=== PATIENT | female | born 1940 | race African-American/Black ===

== ENCOUNTER 2017-01-31 09:51 | Inpatient (IN) ==
[2017-01-31] MEDS ORDERED: PANTOPRAZOLE 40 MG TABLET PO STA (11:25)
[2017-01-31] MEDS ORDERED: METOCLOPRAMIDE 10 MG/2 ML VIAL IV STA (11:25)
[2017-01-31] MEDS ORDERED: ONDANSETRON 4 MG/2 ML VIAL IV STA (11:25)
[2017-01-31] MEDS ORDERED: SODIUM CHLORIDE 0.9% 500 ML IV STA (11:28)
--- NOTE | 2017-01-31 11:31 | Emergency Department Note ---
Arrival - Arrival Chief Complaint: GI Bleed/Rectal Stated Complaint: rectal bleed ED Nursing Triage Note: Pt c/o bright red blood clots in her stool since Tuesday with weakness. Denies abd pain Mode of Arrival: Ambulatory Limitations: No Limitations Source: Patient Time Seen by Provider: 01/31/17 11:25 - History of Present Illness HPI Narrative: This 76-year-old black female presents with a history of onset of black tarry bowel movements 3 days ago with a daily repetition of loose tarry bowel movement since. She has a history of bleeding diverticula and has 3 times in the past had problems with hemorrhage. She denies any pain with this nausea, vomiting, or bright red blood per rectum. At no time did she have any complaints of chest pain or shortness of breath. Her primary complaint is weakness and at times dizziness. She currently at rest in bed is medically stable. Onset (ago): day(s) (This patient presents with 3 days of symptoms) Allergies/Adverse Reactions: Allergies Allergy/AdvReac Type Severity Reaction Status Date / Time No Known Allergies Allergy Unverified 08/12/15 12:20 Home Medications: Home Medications Medication Instructions Recorded Confirmed Type Metoprolol Succinate Xl [Toprol Xl] 25 mg PO DAILY 08/12/15 01/31/17 History Pantoprazole Tab [Protonix Tab] 40 mg PO DAILY 08/12/15 01/31/17 History hydroCHLOROthiazide 25 mg PO DAILY 08/12/15 01/31/17 History [Hydrochlorothiazide] Review of System - Review of System 12 point system: reviewed and no additional remarkable complaints except as stated - Review of System Constitutional: Present: as per HPI Respiratory: Present: as per HPI Cardiovascular: Present: as per HPI Gastrointestinal: Present: as per HPI Medical,Surgical,& Family Hx - Medical History Cardio: History of: Hypertension Gastrointestinal: History of: GERD, GI Problems (STOMACH ULCER) - Surgical History Reproductive Surgeries: Surgical HX of;: Hysterectomy - Family History Family History: Reports;: Family Heart Disease - Social History Smoking Status: Never smoker Exam Physical Examination: GENERAL: Well developed, well nourished elderly black female in no acute distress. HEENT: Normocephalic. No trauma. Moist mucous membranes. EOMI. PERRLA. ENT NML NECK: Supple. No adenopathy. CARDIAC: Regular. No murmurs. Heart rate 75 CHEST: Clear to auscultation. No respiratory distress. O2 sat 99% ABDOMEN: Soft. Nontender. Hyperactive bowel sounds.: Very heme positive stool EXTREMITIES: No trauma. Normal ROM. No pedal edema. SKIN: No diaphoresis. No rash. NEURO: Alert. Neuro intact no focal deficits. Vital Signs: Vital Signs Temperature 99.5 F 01/31/17 11:13 Pulse Rate 79 01/31/17 12:30 Respiratory Rate 19 01/31/17 12:30 Blood Pressure 124/100 01/31/17 12:30 O2 Sat by Pulse Oximetry 100 01/31/17 12:30 Course - Reevaluation(s) Reevaluation #1: Discussed with patient the need for hospitalization for evaluation of her bleed - Consultations Consultation #1: Discussed with hospitalist service who will admit for further evaluation treat Results - Labs CBC & BMP: 01/31/17 11:37 01/31/17 11:37 Labs: I reviewed the lab and noted the low hematocrit and potassium. - Impressions EKG: Sinus rhythm at 55 with normal ND interval and QRS duration. Evidence for LVH. Nonspecific ST changes but no acute injury pattern noted. - Diagnostic Findings Procedure: Chest x-ray: image reviewed by me, report reviewed by me (Chronic changes but no acute pathology there has been development of pulmonary nodules on interval comparison however.) Disposition Clinical Impression: Diverticular bleed, Pulmonary nodules Case discussed with: patient Disposition: Still a Patient Condition: Guarded Time of Disposition: 13:31
[2017-01-31 11:54] LABS: Basophils % 0.1 % (0.0-0.8); Eosinophils % 0.1 % (0.00-10.9); Hematocrit 25.1 VOL% (35.7-47.0); Hemoglobin 7.9 GM/DL (12.0-16.0); Immature Granulocytes % 0.4 %; Immature Granulocytes Absolute 0.03 #; Lymphocytes # 1.7 10*3/uL (1.4-4.0); Lymphocytes % 21.8 % (21.3-54.2); Mean Corpuscular HGB Conc 31.5 GM/DL (32-36); Mean Corpuscular Hemoglobin 26 PG (27-34); Mean Corpuscular Volume 82.3 FL (87-102); Mean Platelet Volume 9.9 FL (9.6-12.0); Monocytes # 0.7 10*3/uL (0.11-0.8); Monocytes % 8.6 % (1.7-12.7); Neutrophils # 5.3 10*3/uL (1.4-7.4); Platelet Count 185 T/CUMM (130-400); Red Blood Count 3.05 MC/CUMM (3.8-5.5); Red Cell Distribution Width 15.7 % (9.3-17.3); White Blood Count 7.7 T/CUMM (4-12)
--- NOTE | 2017-01-31 11:54 | EKG Report ---
Stationary ECG Study [facility] ER Test Date: 01/31/2017 11:55:02 AM Pat Name: CHEL WEINBERG Department: Room: Gender: F Publishing Manager: : 1940 Requested by: Joseph Stallings Order Number: [id number] Tanner MD: SADIE LOWE Intervals Supply Rate: 55 P: 62 AK: 166 QRS: 1 QRSD: 90 T: -7 QT: 462 QTc: 451 Interpretive Statements SINUS RHYTHM VOLTAGE CRITERIA FOR LVH Electronically Signed On 01-31-17 13:59:05 CDT by SADIE LOWE [email or web address]
[2017-01-31] MEDS ORDERED: METOCLOPRAMIDE 10 MG/2 ML VIAL ONE (11:55)
[2017-01-31] MEDS ORDERED: PANTOPRAZOLE 40 MG TABLET PO ONE (11:55)
[2017-01-31] MEDS ORDERED: ONDANSETRON 4 MG/2 ML VIAL ONE (11:55)
--- NOTE | 2017-01-31 11:57 | XRay Report ---
Portable chest. Indication: Shortness of breath. Comparison: August 02, 2015. The heart is normal in size. There is calcific plaque present within the aortic knob. The pulmonary vasculature is normal. The lung ledezma are free of infiltrate. No pneumothorax. No pleural effusion. 8 mm nodular density projects over the left lung base. This is not seen on the previous exam. Degenerative changes of the spinal column and shoulders. Indication: Small nodule in the left lung base, not seen on previous studies. CT the chest is recommended for further evaluation. PROCEDURE INTERPRETED AT [facility] DEPARTMENT OF RADIOLOGY Final Report Signed by: Dr. Arabella Hair
[2017-01-31 12:25] LABS: Alanine Aminotransferase 19 U/L (13-56); Albumin 3.5 G/DL (3.4-5.0); Alkaline Phosphatase 104 U/L (45-117); Aspartate Amino Transferase 16 U/L (0-37); Blood Urea Nitrogen 19 MG/DL (7-18); Calcium 9.8 MG/DL (8.5-10.1); Glucose 107 MG/DL (74-106); Osmolality,Calculated 276.7 MOS/KG (273-304); Potassium 3.3 MMOL/L (3.5-5.1); Sodium 138 MMOL/L (136-145); Total Protein 6.6 G/DL (6.4-8.3); Troponin I Only 0.019 NG/ML (0.00-0.045)
[2017-01-31 12:36] LABS: PT Patient Result 11.4 SECS; Partial Thromboplastin Time 25.4 SECS (0-40)
[2017-01-31] MEDS ORDERED: POTASSIUM BICARB EFFERVESCENT 25 MEQ TABLET PO ONE ×2 (13:09→13:58)
[2017-01-31] MEDS ORDERED: PANTOPRAZOLE INJ 200 MG in SODIUM CHLORIDE 0.9% 250 ML IV SCH (14:00)
[2017-01-31] MEDS ORDERED: SODIUM CHLORIDE 0.9% 250 ML IV PRN (14:11)
--- NOTE | 2017-01-31 14:15 | Hospitalist History & Physical ---
Assessment and Plan (1) Essential (primary) hypertension Status: Acute Assessment and plan: Patient was mildly hypertensive at the time of ED presentation with blood pressure noted at 124/100. We will resume home medications as previously ordered we will monitor blood pressure throughout the clinical encounter. Current Visit: No (2) GI bleed Status: Acute Current Visit: No (3) Diverticular hemorrhage Status: Resolved Assessment and plan: The patient reports multiple episodes of diverticular hemorrhage in the past. We will gently rehydrate, type and screen, transfuse blood products, start PPIs , DVT prophylaxis, and keep n.p.o. Gastroenterology has been consulted to evaluate and assist during the clinical encounter. Current Visit: No (4) Hypokalemia Status: Acute Assessment and plan: Potassium noted at 3.3 at the time of admission. We will start potassium replacement protocol and recheck potassium in a.m. Current Visit: Yes History of Present Illness Chief complaint: Bloody stools and weakness History of present illness: This is a very pleasant 76-year-old female that presented to the ED at [facility] this afternoon for the evaluation of bloody stools and weakness. The patient has a medical history significant for: hypertension and GERD. Patient has a surgical history significant for hysterectomy. Patient reports the onset of stools 3 days prior to presentation. She describes the stool as "loose and tarry". The patient reports that she has had a remote history of diverticular bleeding which presented similar to the above complaint. Pertinent positives include: Bloody stools and weakness; pertinent negatives include: Nausea, vomiting, abdominal pain, diaphoresis, fever, chest pain, shortness of breath, and syncope. After multiple episodes of bloody stool this morning, the patient decided to present to the ED for further evaluation. The patient was assessed at the time of ED presentation. The patient was noted to be febrile with a temperature of 99.5 and hypotensive with a blood pressure of 124/100. Labs were obtained; complete blood count reported white blood cell count at 7.7, hemoglobin 7.9, hematocrit 25.1, and platelet count 185. Coagulation panel reported INR 1.0, PT 11.4, PTT 25.4. Complete metabolic profile reported sodium 138, potassium 3.3, chloride 102, BUN 19, creatinine 1.30, and glucose 107. Cardiac enzymes reported troponin at 0.019. Chest x- ray reported small nodular in the left lung base which was not seen on previous studies. After brief discussion with both Dr. Saxena and Dr. Jaramillo, the patient will be admitted to the hospitalist services for continuation of care. We will consult gastroenterology to evaluate and assist in the management of the patient during the clinical encounter. Home medications have been reviewed and reconciled. CODE STATUS has been discussed; the patient is a FULL CODE. Home Medications Medication Instructions Recorded Confirmed Type Metoprolol Succinate Xl [Toprol Xl] 25 mg PO DAILY 08/12/15 01/31/17 History Pantoprazole Tab [Protonix Tab] 40 mg PO DAILY 08/12/15 01/31/17 History hydroCHLOROthiazide 25 mg PO DAILY 08/12/15 01/31/17 History [Hydrochlorothiazide] Allergies Allergy/AdvReac Type Severity Reaction Status Date / Time No Known Allergies Allergy Unverified 08/12/15 12:20 Medical,Surgical,& Family Hx - Medical History Cardio: History of: Hypertension Gastrointestinal: History of: GERD, GI Problems (STOMACH ULCER) - Surgical History Reproductive Surgeries: Surgical HX of;: Hysterectomy - Family History Family History: Reports;: Family Heart Disease - Social History Smoking Status: Never smoker 12 point system: reviewed and no additional remarkable complaints except as stated Exam - Constitutional Vitals: Period Temp Pulse Resp BP Sys/Mukherjee Pulse Ox Last 24 Hr 98.2 F-99.5 F 58-79 15-19 80-133/50-100 98-100 General appearance: normal weight, no acute distress - Head Head exam: Present: normal inspection, normocephalic, atraumatic - Eye Eye exam: Present: EOMI. Absent: conjunctival injection Pupils: Present: KIANA, normal accommodation - ENT ENT exam: Present: normal exam, normal external ear exam, normal oropharynx - Neck Neck exam: Present: normal inspection. Absent: lymphadenopathy, meningismus, thyromegaly - Respiratory Respiratory exam: Present: clear to auscultation bilaterally. Absent: rales, rhonchi, stridor, wheezes - Cardiovascular Cardiovascular exam: Present: regular rate and rhythm. Absent: carotid bruit, diastolic murmur, gallop, JVD, rubs, systolic murmur - GI/Abdominal GI/Abdominal exam: Present: normal bowel sounds, soft. Absent: distended, guarding, tenderness - Extremities Exam Extremities exam: Present: normal inspection, normal capillary refill, full ROM , edema - Back Exam Back exam: Present: normal inspection - Neurological Exam Neurological exam: Present: alert, oriented X3, CN II-XII intact - Psychiatric Psychiatric exam: Present: normal affect, normal mood - Skin Skin exam: Present: normal color, warm, dry Results - Labs CBC & BMP: 01/31/17 11:37 01/31/17 11:37 Lab Results: I have reviewed the past 24 hour labs
--- NOTE | 2017-01-31 14:55 | Gastrointestinal Consult Note ---
Assessment and Plan (1) GI bleed Status: Acute Assessment and plan: 01/31-3 day history of bright red rectal bleeding with clots mixed with stool without associated symptoms. No abdominal pain. Prior history of diverticular bleeding in the past. Hemoglobin down to 7.9 and to be transfused today. Last C scope in 2010 with findings of pandiverticulosis. Continue to monitor serial H&H every 8 hours and transfuse as needed. Clear liquid diet. Plan an addendum to follow Dr. Branch. Current Visit: No History of Present Illness Chief complaint: GI bleed History of present illness: Ms. Corona is a 76 year old female who was admitted to the hospital with onset of bright red rectal bleeding. Patient is a fairly good historian however sign and spouse are at bedside. Patient states that she was doing well until Tuesday when she had a sudden onset of bright red rectal bleeding. She states that the bleeding concern her and she went to see Dr. Rodriguez at that time and was given antibiotics to treat for possible diverticulitis. She was also told at that time the rectal bleeding was possibly related to her hemorrhoids. She states that the bleeding continued over the weekend with a couple of bowel movements daily mixed with bright red blood and dark clots without abdominal pain other than the urge to defecate. She states that on yesterday she began to be increasingly weak and decided to come to the emergency room today for further evaluation due to this. Patient has a prior history of diverticular bleeding in the past. She states that this feels very similar to the past experience that she has had. She has had some weight loss over the last year at 25 pounds which was verified from her last inpatient stay in July 2015. 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 She does report a loss of appetite over the last year or 2. Her last inpatient stay was in July 2015 for rectal bleeding. Last known colonoscopy was in 2010 with findings of pandiverticulosis coli and small internal hemorrhoids. On admission patient was found to have a hemoglobin of 7.9. She is to be transfused 2 units of packed red blood cells today. Home Medications Medication Instructions Recorded Confirmed Type Metoprolol Succinate Xl [Toprol Xl] 25 mg PO DAILY 08/12/15 01/31/17 History Pantoprazole Tab [Protonix Tab] 40 mg PO DAILY 08/12/15 01/31/17 History hydroCHLOROthiazide 25 mg PO DAILY 08/12/15 01/31/17 History [Hydrochlorothiazide] Allergies Allergy/AdvReac Type Severity Reaction Status Date / Time No Known Allergies Allergy Unverified 08/12/15 12:20 Medical,Surgical,& Family Hx - Medical History Cardio: History of: Hypertension Gastrointestinal: History of: GERD, GI Problems (STOMACH ULCER) - Surgical History Reproductive Surgeries: Surgical HX of;: Hysterectomy - Family History Family History: Reports;: Family Heart Disease - Social History Smoking Status: Never smoker 12 point system: reviewed and no additional remarkable complaints except as stated - Constitutional Constitutional: Present: as per HPI, weakness, weight loss (25 pounds 18 months ) - EENT Eyes: Present: as per HPI Ears: Present: as per HPI Nose, mouth and throat: Present: as per HPI - Cardiovascular Cardiovascular: Present: as per HPI - Respiratory Respiratory: Present: as per HPI - Gastrointestinal Gastrointestinal: Present: as per HPI, hematochezia - Genitourinary Genitourinary: Present: as per HPI - Musculoskeletal Musculoskeletal: Present: as per HPI - Neurological Neurological: Present: as per HPI - Psychiatric Psychiatric: Present: as per HPI - Endocrine Endocrine: Present: as per HPI - Hematologic/Lymphatic Hematologic/Lymphatic: Present: as per HPI Exam - Constitutional Vitals: Period Temp Pulse Resp BP Sys/Mukherjee Pulse Ox Last 24 Hr 98.2 F-99.5 F 58-79 15-21 80-133/50-100 98-100 General appearance: normal weight, no acute distress - Head Head exam: Present: normal inspection, normocephalic - Eye Eye exam: Present: other (Lids and conjunctive are unremarkable). Absent: scleral icterus - ENT ENT exam: Present: normal exam, normal oropharynx - Neck Neck exam: Present: normal inspection - Respiratory Respiratory exam: Present: clear to auscultation bilaterally. Absent: rales, rhonchi, wheezes - Cardiovascular Cardiovascular exam: Present: regular rate and rhythm. Absent: diastolic murmur , JVD, systolic murmur - GI/Abdominal GI/Abdominal exam: Present: normal bowel sounds, soft. Absent: ascites, distended, mass, organomegaly, tenderness - Extremities Exam Extremities exam: Present: normal inspection, full ROM - Back Exam Back exam: Present: normal inspection - Neurological Exam Neurological exam: Present: alert, oriented X3 - Psychiatric Psychiatric exam: Present: normal affect, normal mood - Skin Skin exam: Present: normal color, warm, dry Results - Labs CBC & BMP: 01/31/17 11:37 01/31/17 11:37 Lab Results: I have reviewed the past 24 hour labs
[2017-01-31 17:09] LABS: Hematocrit 22.2 VOL% (35.7-47.0); Hemoglobin 6.9 GM/DL (12.0-16.0)
[2017-01-31 18:00] LABS: Calcium 8.6 MG/DL (8.5-10.1); Magnesium 2.1 MG/DL (1.8-2.4); Osmolality,Calculated 280.4 MOS/KG (273-304); Potassium 3.4 MMOL/L (3.5-5.1)
[2017-01-31] MEDS ORDERED: POLYETHYLENE GLYCOL POWDER 255 GM BOTTLE PO ONE (18:00)
[2017-01-31] MEDS: SODIUM CHLORIDE 0.9% 1,000 ML IV SCH (23:53)
[2017-02-01] MEDS ORDERED: MAGNESIUM CITRATE 300 ML BOTTLE PO ONE (06:00)
[2017-02-01] MEDS: SODIUM CHLORIDE 0.9% 1,000 ML IV SCH ×4 (06:11→23:19)
[2017-02-01 06:37] LABS: Basophils % 0.3 % (0.0-0.8); Eosinophils # 0.1 10*3/uL (0.0-0.87); Hematocrit 26.5 VOL% (35.7-47.0); Hemoglobin 8.5 GM/DL (12.0-16.0); Immature Granulocytes % 0.3 %; Immature Granulocytes Absolute 0.02 #; Lymphocytes # 1.5 10*3/uL (1.4-4.0); Lymphocytes % 24.4 % (21.3-54.2); Mean Corpuscular HGB Conc 32.1 GM/DL (32-36); Mean Corpuscular Hemoglobin 27 PG (27-34); Mean Corpuscular Volume 84.1 FL (87-102); Mean Platelet Volume 10.4 FL (9.6-12.0); Monocytes # 0.6 10*3/uL (0.11-0.8); Monocytes % 10.7 % (1.7-12.7); Neutrophils # 3.7 10*3/uL (1.4-7.4); Neutrophils % 62.3 % (38.7-73.9); Platelet Count 124 T/CUMM (130-400); Red Blood Count 3.15 MC/CUMM (3.8-5.5); Red Cell Distribution Width 15.4 % (9.3-17.3)
--- NOTE | 2017-02-01 07:39 | Physician Query Form ---
CLICK EDIT DOCUMENT TO SELECT QUERY ANSWER --> OK --> SIGN Rosa Varner RN, CCDS Certified Clinical Retail Team Member W) [phone] (f) [phone] [email or web address] PROVIDERS: Make your selection(s) from the choices in EACH section by typing an "x" and enter comments in the comment section. Please use your independent medical judgment in providing your response. This request does not imply that any particular answer is desired or expected. CLINICAL INDICATORS: (Providers should not edit this section) The medical record indicates that the patient was admitted with GI bleeding, HH of 7.9/25.1 and the patient was later given 2 units of blood. Based on the above, could you clarify which of the following conditions you are evaluating, treating, and/or monitoring? ( ) Blood loss anemia ( ) acute ( ) chronic ( ) acute on chronic (x) Acute blood loss anemia on baseline chronic anemia ( ) Acute blood loss anemia as a complication of a procedure ( ) Iron deficiency anemia not associated with blood loss ( ) Dilutional anemia due to IV fluids ( ) Anemia due to chemotherapy ( ) Anemia due to neoplastic disease ( ) Anemia due to chronic kidney disease ( ) Pernicious anemia ( ) Aplastic anemia ( ) Hemolytic anemia ( ) immune ( ) non-immune - please specify cause: ( ) Anemia due to other condition, please specify: ( ) Clinically unable to determine COMMENTS: PLEASE ALSO DOCUMENT RESPONSE IN PROGRESS NOTES AND/OR DISCHARGE SUMMARY Use of terms such as suspected, likely, or probable (associated with a specific diagnosis that is being evaluated, monitored, or treated as if it exists) are acceptable and can be restated in the discharge summary if not ruled out. MTDD
[2017-02-01] MEDS: PANTOPRAZOLE 40 MG TABLET PO SCH (08:51)
--- NOTE | 2017-02-01 09:11 | Hospitalist Progress Note ---
Assessment and Plan (1) Diverticular hemorrhage Status: Acute Assessment and plan: Recurrent episode. Presentation with symptomatic anemia. Current Visit: No Hospitalist: Subjective Interval history: 76-year-old female with long-standing history of diverticular disease presented with shortness of breath and weakness with significant anemia and history of recurrent painless bleeding from her rectum. Patient's initial hemoglobin was 7.9. She was transfused 2 units of packed red blood cell with an increase in her hemoglobin from 6.9 at the initiation of transfusion to 8.5 this morning. She has had no abdominal pain no further bleeding per rectum. She is pending gastroenterology evaluation. Vital signs overnight were stable and she feels well this morning. Exam - Constitutional Vitals: Period Temp Pulse Resp BP Sys/Mukherjee Pulse Ox Last 24 Hr 97.4 F-99.5 F 51-79 15-21 80-133/41-100 96-100 General appearance: over weight - Respiratory Respiratory exam: Present: clear to auscultation bilaterally. Absent: rales, rhonchi, wheezes - Cardiovascular Cardiovascular exam: Present: regular rate and rhythm - GI/Abdominal GI/Abdominal exam: Present: normal bowel sounds. Absent: tenderness, rebound - Extremities Exam Extremities exam: Absent: edema - Neurological Exam Neurological exam: Present: alert, oriented X3 Results - Labs CBC & BMP: 02/01/17 05:35 01/31/17 15:56
[2017-02-01] MEDS: METOPROLOL SUCCINATE XL 25 MG TABLET PO SCH (12:07)
--- NOTE | 2017-02-01 13:29 | History and Physical Update ---
History and Physical Update - History and Physical H&P was reviewed, the patient examined and there: are no changes in the patients condition since last H&P was completed. - Physical Exam Mental Status: alert and oriented Heart: regular rate and rhythm Lung: clear to auscultation Abdomen: within normal limits Vitals: within normal limits
--- NOTE | 2017-02-01 13:31 | Operative Note ---
Date of procedure: 02/01/17 Pre-op diagnosis: Lower GI bleeding with acute blood loss anemia Procedure: Procedure note: Colonoscopy with hot biopsy removal polyps Physician: Dr. Sriram Branch Brief clinical abstract: 76-year-old female is admitted with painless lower GI bleeding. She has been transfused with 2 units packed red blood cells. Patient has prior history of lower GI bleeding felt to be related to diverticulosis. Endoscopic findings: After informed consent was obtained, the patient was placed in the left lateral decubitus position. Digital rectal exam was performed with no palpable abnormalities felt. Pediatric videocolonoscope was inserted into the rectum and advanced to the cecum without difficulty. Terminal ileum was intubated and distal 8-10 cm examined. A small amount of bright red blood was noted in the distal few centimeters of the ileum. No blood was noted to pass from above and I am not sure if this is refluxed back from the cecum. The endoscope was withdrawn back into the cecum. Retroflex view within the cecum was performed back to the level of the hepatic flexure. The endoscope was advanced back to the cecum and on withdrawal colonic mucosa was carefully examined. There was a good bit of fairly fresh bright red blood in the proximal ascending colon and throughout the colon distal to this. We spent a good bit of time washing water through the endoscope and suctioning to clean this up. No blood reaccumulated to suggest current active bleeding. bowel prep was of good quality. Patient had extensive diverticulosis in the ascending, transverse, descending and sigmoid colon. No obvious bleeding stigmata were seen to suggest a definite bleeding site. 2 polyps were removed with hot biopsy forceps, one in the distal ascending colon and the other in the mid transverse colon. Each of these were approximately 5 mm diameter. Vascular pattern throughout the colon appeared normal. The endoscope was withdrawn in the rectum with retroflex view showing small internal hemorrhoids. The endoscope was removed and she appeared to tolerate the procedure well. Impression: #1 bleeding source felt to likely be from ascending colon given blood distribution #2 pandiverticulosis coli #3 small colon polyps Plan: Continue observation with serial hemoglobins and blood product support as needed. Nuclear medicine GI bleeding scan if significant recurrent bleeding. Anesthesia: MAC Surgeon / Physician: Rd Branch Estimated blood loss: minimal Specimens: none sent Condition: stable Disposition: post procedure unit Results - Labs CBC & BMP: 02/01/17 05:35 01/31/17 15:56 Discharge Plan - Discharge Medications No Action Metoprolol Succinate Xl [Toprol Xl] 25 mg PO DAILY Pantoprazole Tab [Protonix Tab] 40 mg PO DAILY hydroCHLOROthiazide [Hydrochlorothiazide] 25 mg PO DAILY - Follow Up or Referral - Forms/Instructions
--- NOTE | 2017-02-01 14:03 | Anesthesia Post-Op ---
Anesthesia Post OP - Post Ansesthetic Evaluation Patient seen in post op: Yes Resp: within normal limits CV: within normal limits Mental: within normal limits Temp: within normal limits [id number]: within normal limits Nausea and Vomiting: within normal limits Pain: within normal limits
[2017-02-02] MEDS: SODIUM CHLORIDE 0.9% 1,000 ML IV SCH ×3 (02:47→21:55)
[2017-02-02 06:25] LABS: Basophils % 0.5 % (0.0-0.8); Eosinophils # 0.2 10*3/uL (0.0-0.87); Eosinophils % 2.5 % (0.00-10.9); Hematocrit 28.9 VOL% (35.7-47.0); Hemoglobin 8.9 GM/DL (12.0-16.0); Immature Granulocytes % 0.3 %; Immature Granulocytes Absolute 0.02 #; Lymphocytes # 1.1 10*3/uL (1.4-4.0); Lymphocytes % 18.3 % (21.3-54.2); Mean Corpuscular HGB Conc 30.8 GM/DL (32-36); Mean Corpuscular Hemoglobin 27 PG (27-34); Mean Corpuscular Volume 86.3 FL (87-102); Mean Platelet Volume 10.1 FL (9.6-12.0); Monocytes # 0.6 10*3/uL (0.11-0.8); Monocytes % 9.4 % (1.7-12.7); Neutrophils # 4.1 10*3/uL (1.4-7.4); Platelet Count 147 T/CUMM (130-400); Red Blood Count 3.35 MC/CUMM (3.8-5.5); Red Cell Distribution Width 15.6 % (9.3-17.3)
--- NOTE | 2017-02-02 08:54 | Gastrointestinal Progress Note ---
Assessment and Plan (1) GI bleed Status: Acute Assessment and plan: 02/02-C scope findings noted with bleeding source to ascending colon, diverticulosis, and polyp with path pending. Reported one episode of bleeding this morning. Hemoglobin stable at 8.9. Recheck H&H this afternoon. Advance diet at this time. Plan an addendum to followed by Dr. Branch. 01/31-3 day history of bright red rectal bleeding with clots mixed with stool without associated symptoms. No abdominal pain. Prior history of diverticular bleeding in the past. Hemoglobin down to 7.9 and to be transfused today. Last C scope in 2010 with findings of pandiverticulosis. Continue to monitor serial H&H every 8 hours and transfuse as needed. Clear liquid diet. Plan an addendum to follow Dr. Branch. Current Visit: No Gastroenterology - PN: Subj Interval history: CC: GI bleed Patient is seen, awake and alert, sitting up in chair in her 's room. 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 She states that she did have an episode of bleeding in her stool this morning and however she cannot recall if this was bright red or dark. She is denying any abdominal pain and she is tolerating her diet well this time. She states that she has concerns when she returns home of bleeding again. Will advance her diet today and see how she tolerates this. Abdomen is soft, nontender. Hemoglobin is improved at 8.9 and holding. ROS: Denies shortness of breath or chest pain Exam (Progress Note) - Constitutional Vitals: Period Temp Pulse Resp BP Sys/Mukherjee Pulse Ox Last 24 Hr 96.9 F-98.4 F 45-63 15-22 102-152/46-053 96-100 General appearance: normal weight, no acute distress - Head Head exam: Present: normal inspection, normocephalic - Eye Eye exam: Present: other (Lids and conjunctive are unremarkable). Absent: scleral icterus - ENT ENT exam: Present: normal exam, normal oropharynx - Neck Neck exam: Present: normal inspection - Respiratory Respiratory exam: Present: clear to auscultation bilaterally. Absent: rales, rhonchi, wheezes - Cardiovascular Cardiovascular exam: Present: regular rate and rhythm. Absent: diastolic murmur , JVD, systolic murmur - GI/Abdominal GI/Abdominal exam: Present: normal bowel sounds, soft. Absent: ascites, distended, mass, organomegaly, tenderness - Extremities Exam Extremities exam: Present: normal inspection, full ROM - Back Exam Back exam: Present: normal inspection - Neurological Exam Neurological exam: Present: alert, oriented X3 - Psychiatric Psychiatric exam: Present: normal affect, normal mood - Skin Skin exam: Present: normal color, warm, dry Results - Labs CBC & BMP: 02/02/17 06:13 01/31/17 15:56 Lab Results: I have reviewed the past 24 hour labs
--- NOTE | 2017-02-02 09:47 | Hospitalist Progress Note ---
Assessment and Plan (1) Diverticular hemorrhage Status: Acute Assessment and plan: Recurrent episode. Presentation with symptomatic anemia. Current Visit: No Hospitalist: Subjective Interval history: 76-year-old female long-standing history of diverticular disease who had presented with shortness of breath weakness and a substantial anemia. She has a long history of painless rectal bleeding. The patient required a 2 unit packed red blood cell transfusion. On 01 February the patient underwent a colonoscopy a small polyp was removed extensive diverticular changes were present. Patient states she had some small amount of bright blood overnight. Vital signs are stable she is afebrile. Exam - Constitutional Vitals: Period Temp Pulse Resp BP Sys/Mukherjee Pulse Ox Last 24 Hr 95.9 F-98.4 F 45-63 15-22 102-152/46-053 96-100 General appearance: over weight - Respiratory Respiratory exam: Present: clear to auscultation bilaterally - Cardiovascular Cardiovascular exam: Present: regular rate and rhythm - GI/Abdominal GI/Abdominal exam: Present: normal bowel sounds. Absent: tenderness - Extremities Exam Extremities exam: Absent: edema - Neurological Exam Neurological exam: Present: alert, oriented X3 Results - Labs CBC & BMP: 02/02/17 06:13 01/31/17 15:56
[2017-02-02] MEDS: PANTOPRAZOLE 40 MG TABLET PO SCH (10:07)
[2017-02-02] MEDS: METOPROLOL SUCCINATE XL 25 MG TABLET PO SCH (10:07)
[2017-02-02 13:10] LABS: Hematocrit 30.2 VOL% (35.7-47.0); Hemoglobin 9.3 GM/DL (12.0-16.0)
--- NOTE | 2017-02-02 13:31 | Pathology Report from [facility] ---
[facility] ACCESSION # : [id number] PATIENT NAME : Chel Corona ORDERING DR : PAULETTE WISE MD CLINICAL HX: GI Bleed POST-OP DX: Colon polyp - ascending/transverse SPECIMEN INFO: Colon polyp - ascending/transverse GROSS DESCRIPTION: The specimen is received in formalin labeled with the patients name and consists of two reynolds tissue fragments measuring 0.5 x 0.2 cm collectively. Submitted in one cassette. DIAGNOSIS FOR CHEL OCRONA: ASCENDING & TRANSVERSE COLON BIOPSIES: Tubular adenomas (2). COLLECTED DATE: 02/01/2017 [facility] REPORT DATE: 02/02/2017 ELECTRONICALLY SIGNED BY: Sheldon Naranjo M.D. 02/02/2017 - 10:25:27 [facility]ITALDion[facility]
--- NOTE | 2017-02-03 06:55 | Hospitalist Progress Note ---
Assessment and Plan (1) Diverticular hemorrhage Status: Acute Assessment and plan: Recurrent episode. Presentation with symptomatic anemia. Current Visit: No Hospitalist: Subjective Interval history: 76-year-old female long-standing history of diverticular disease who presented with shortness of breath and weakness with significant anemia. She has had intermittent painless rectal bleeding and required 2 units of packed red blood cells. Colonoscopy on February 01 demonstrated a small polyp which was resected and has returned as a tubular adenoma. Multilevel diverticular disease is identified. Patient is continued hemodynamically stable hemoglobin yesterday afternoon was 9.3. Although she describes some blood in her stool specimen this morning demonstrates no blood. Her vital signs are stable she is afebrile. Exam - Constitutional Vitals: Period Temp Pulse Resp BP Sys/Mukherjee Pulse Ox Last 24 Hr 95.9 F-98.2 F 51-60 18-20 114-140/63-76 96-99 General appearance: over weight - Respiratory Respiratory exam: Present: clear to auscultation bilaterally. Absent: rales, rhonchi, wheezes - Cardiovascular Cardiovascular exam: Present: regular rate and rhythm - GI/Abdominal GI/Abdominal exam: Present: normal bowel sounds. Absent: tenderness - Extremities Exam Extremities exam: Absent: edema - Neurological Exam Neurological exam: Present: alert, oriented X3 Results - Labs CBC & BMP: 02/02/17 12:40 01/31/17 15:56
--- NOTE | 2017-02-03 08:54 | Gastrointestinal Progress Note ---
Assessment and Plan (1) GI bleed Status: Acute Assessment and plan: 02/03-2 episodes of dark red blood with bowel movement since yesterday, significantly less than onset. Hemoglobin is improved to 9.3. No further transfusions have been required. Tolerating regular diet. Continue to monitor at this time and if remains stable could consider discharge tomorrow if bleeding resolves. Plan an addendum followed by Dr. Branch. 02/02-C scope findings noted with bleeding source to ascending colon, diverticulosis, and polyp with path pending. Reported one episode of bleeding this morning. Hemoglobin stable at 8.9. Recheck H&H this afternoon. Advance diet at this time. Plan an addendum to followed by Dr. Branch. 01/31-3 day history of bright red rectal bleeding with clots mixed with stool without associated symptoms. No abdominal pain. Prior history of diverticular bleeding in the past. Hemoglobin down to 7.9 and to be transfused today. Last C scope in 2010 with findings of pandiverticulosis. Continue to monitor serial H&H every 8 hours and transfuse as needed. Clear liquid diet. Plan an addendum to follow Dr. Branch. Current Visit: No Gastroenterology - PN: Subj Interval history: CC: GI bleed Patient is seen awake and alert visiting with her spouse. She states that she has had a couple more episodes of dark blood noted in her stool however states this is improving from initial onset. She denies any abdominal pain, nausea or vomiting. She is tolerating a regular diet without difficulty. Abdomen is soft , nontender. Hemoglobin is holding at 9.3 and has not required any further transfusions since admission. ROS: Denies shortness breath or chest pain Exam (Progress Note) - Constitutional Vitals: Period Temp Pulse Resp BP Sys/Mukherjee Pulse Ox Last 24 Hr 97.5 F-98.2 F 53-60 18-20 114-140/65-76 96-99 - Other Additional findings: General appearance: normal weight, no acute distress - Head Head exam: Present: normal inspection, normocephalic - Eye Eye exam: Present: other (Lids and conjunctive are unremarkable). Absent: scleral icterus - ENT ENT exam: Present: normal exam, normal oropharynx - Neck Neck exam: Present: normal inspection - Respiratory Respiratory exam: Present: clear to auscultation bilaterally. Absent: rales, rhonchi, wheezes - Cardiovascular Cardiovascular exam: Present: regular rate and rhythm. Absent: diastolic murmur , JVD, systolic murmur - GI/Abdominal GI/Abdominal exam: Present: normal bowel sounds, soft. Absent: ascites, distended, mass, organomegaly, tenderness - Extremities Exam Extremities exam: Present: normal inspection, full ROM - Back Exam Back exam: Present: normal inspection - Neurological Exam Neurological exam: Present: alert, oriented X3 - Psychiatric Psychiatric exam: Present: normal affect, normal mood - Skin Skin exam: Present: normal color, warm, dry Results - Labs CBC & BMP: 02/02/17 12:40 01/31/17 15:56 Lab Results: I have reviewed the past 24 hour labs
[2017-02-03] MEDS: PANTOPRAZOLE 40 MG TABLET PO SCH (09:53)
[2017-02-03] MEDS: METOPROLOL SUCCINATE XL 25 MG TABLET PO SCH (09:53)
[2017-02-04 05:06] LABS: Basophils % 0.3 % (0.0-0.8); Eosinophils # 0.3 10*3/uL (0.0-0.87); Eosinophils % 4.4 % (0.00-10.9); Immature Granulocytes % 0.3 %; Immature Granulocytes Absolute 0.02 #; Lymphocytes # 1.6 10*3/uL (1.4-4.0); Lymphocytes % 26.9 % (21.3-54.2); Mean Corpuscular Hemoglobin 27 PG (27-34); Mean Platelet Volume 10.2 FL (9.6-12.0); Monocytes # 0.7 10*3/uL (0.11-0.8); Monocytes % 11.5 % (1.7-12.7); Neutrophils # 3.3 10*3/uL (1.4-7.4); Neutrophils % 56.6 % (38.7-73.9); Platelet Count 138 T/CUMM (130-400); Red Blood Count 2.94 MC/CUMM (3.8-5.5); Red Cell Distribution Width 15.3 % (9.3-17.3); White Blood Count 5.9 T/CUMM (4-12)
[2017-02-04 05:46] LABS: Calcium 8.6 MG/DL (8.5-10.1); Osmolality,Calculated 289.6 MOS/KG (273-304); Potassium 3.6 MMOL/L (3.5-5.1)
[2017-02-04] MEDS: METOPROLOL SUCCINATE XL 25 MG TABLET PO SCH (09:33)
[2017-02-04] MEDS: PANTOPRAZOLE 40 MG TABLET PO SCH (09:34)
--- NOTE | 2017-02-04 09:36 | Gastrointestinal Progress Note ---
Assessment and Plan (1) GI bleed Status: Acute Assessment and plan: 02/04-no rectal this morning but states she did have a couple episodes yesterday. Hemoglobin is down at 8 today. No complaints of pain. Continue to monitor H&H and if patient continues with active bleeding may need to consider CT GI bleeding scan at that time. Plan an addendum to followed by Dr. Branch. 02/03-2 episodes of dark red blood with bowel movement since yesterday, significantly less than onset. Hemoglobin is improved to 9.3. No further transfusions have been required. Tolerating regular diet. Continue to monitor at this time and if remains stable could consider discharge tomorrow if bleeding resolves. Plan an addendum followed by Dr. Branch. 02/02-C scope findings noted with bleeding source to ascending colon, diverticulosis, and polyp with path pending. Reported one episode of bleeding this morning. Hemoglobin stable at 8.9. Recheck H&H this afternoon. Advance diet at this time. Plan an addendum to followed by Dr. Branch. 01/31-3 day history of bright red rectal bleeding with clots mixed with stool without associated symptoms. No abdominal pain. Prior history of diverticular bleeding in the past. Hemoglobin down to 7.9 and to be transfused today. Last C scope in 2010 with findings of pandiverticulosis. Continue to monitor serial H&H every 8 hours and transfuse as needed. Clear liquid diet. Plan an addendum to follow Dr. Branch. Current Visit: No Gastroenterology - PN: Subj Interval history: CC: GI bleed Patient is seen, sitting on edge of bed eating breakfast with her spouse at side. Patient is noted today to have a drop in her hemoglobin from 9.3-8 since yesterday. She does report that she is still continuing to have some GI bleeding which she describes to look like red jelly. She is denying any abdominal pain, nausea or vomiting. Patient is wanting to be discharged home and at times seems to be down playing her symptoms due to this. She is the primary caregiver for her spouse who has a brain injury and he currently is hospitalized as well in which the patient is having to continue to care for him while she remains in the hospital. She has a good appetite and she is tolerating her diet. Abdomen is soft, nontender. ROS: Denies shortness of breath or chest pain Exam (Progress Note) - Constitutional Vitals: Period Temp Pulse Resp BP Sys/Mukherjee Pulse Ox Last 24 Hr 97.1 F-99 F 53-83 18-20 97-146/51-69 96-100 - Other Additional findings: General appearance: normal weight, no acute distress - Head Head exam: Present: normal inspection, normocephalic - Eye Eye exam: Present: other (Lids and conjunctive are unremarkable). Absent: scleral icterus - ENT ENT exam: Present: normal exam, normal oropharynx - Neck Neck exam: Present: normal inspection - Respiratory Respiratory exam: Present: clear to auscultation bilaterally. Absent: rales, rhonchi, wheezes - Cardiovascular Cardiovascular exam: Present: regular rate and rhythm. Absent: diastolic murmur , JVD, systolic murmur - GI/Abdominal GI/Abdominal exam: Present: normal bowel sounds, soft. Absent: ascites, distended, mass, organomegaly, tenderness - Extremities Exam Extremities exam: Present: normal inspection, full ROM - Back Exam Back exam: Present: normal inspection - Neurological Exam Neurological exam: Present: alert, oriented X3 - Psychiatric Psychiatric exam: Present: normal affect, normal mood - Skin Skin exam: Present: normal color, warm, dry Results - Labs CBC & BMP: 02/04/17 04:16 02/04/17 04:16 Lab Results: I have reviewed the past 24 hour labs
[2017-02-05 08:45] LABS: Basophils % 0.3 % (0.0-0.8); Eosinophils # 0.3 10*3/uL (0.0-0.87); Eosinophils % 4.6 % (0.00-10.9); Hematocrit 25.2 VOL% (35.7-47.0); Immature Granulocytes % 0.3 %; Immature Granulocytes Absolute 0.02 #; Lymphocytes # 1.3 10*3/uL (1.4-4.0); Mean Corpuscular HGB Conc 31.7 GM/DL (32-36); Mean Corpuscular Hemoglobin 27 PG (27-34); Mean Platelet Volume 10.3 FL (9.6-12.0); Monocytes # 0.6 10*3/uL (0.11-0.8); Neutrophils # 3.7 10*3/uL (1.4-7.4); Neutrophils % 62.8 % (38.7-73.9); Platelet Count 127 T/CUMM (130-400); Red Cell Distribution Width 15.3 % (9.3-17.3); White Blood Count 5.9 T/CUMM (4-12)
[2017-02-05] MEDS: METOPROLOL SUCCINATE XL 25 MG TABLET PO SCH (09:18)
[2017-02-05] MEDS: PANTOPRAZOLE 40 MG TABLET PO SCH (09:18)
[2017-02-05] MEDS ORDERED: ALPRAZolam 0.5 MG TABLET PO ONE (09:22)
--- NOTE | 2017-02-05 09:27 | Gastrointestinal Progress Note ---
Assessment and Plan (1) Diverticular hemorrhage Status: Acute Assessment and plan: This patient's hematocrit is down to 25% but is been stable since yesterday at this level. Stools do not appear to have any further beth blood, I would not be surprised if there was some trace blood left over from her previous bleeding and perhaps from the tubular adenomas that were removed during colonoscopy as well. She will need a repeat colonoscopy with Dr. Branch in 5 years. Current Visit: No (2) Acute blood loss anemia Status: Resolved Assessment and plan: The patient is observing how she feels with her current hematocrit which is 25% she is stable at this point from my standpoint could likely be discharged if she does not desire transfusion. If she feels weak enough I would certainly encourage her to obtain a transfusion before discharge as it will give her some cushion in case she bleeds again. About 25% of these diverticular bleeds do have a recurrence in the first year. She is eating well and can be discharged from my standpoint. She will need to follow-up with Dr. Branch again in the future. Current Visit: No (3) Colon polyps Status: Acute Assessment and plan: This patient will need a repeat colonoscopy with Dr. Branch in January 2022. Current Visit: Yes Gastroenterology - PN: Subj Interval history: This patient just passed a stool which appears to be brown and did not have any gross evidence of black or bright red blood or maroon stool. She is feeling some anxiety in association with her but not true chest pain or chest pressure she is not short of breath or dizzy sitting up at the bedside. Although the hematocrit dropped down to 25% after being up as high as 30% it remains stable at 25% this morning. She is going to observe how she feels and decide whether or not she wants to be transfused prior to going home. Exam (Progress Note) - Constitutional Vitals: Period Temp Pulse Resp BP Sys/Mukherjee Pulse Ox Last 24 Hr 97.4 F-99.3 F 48-68 18-20 110-140/57-81 94-96 General appearance: no acute distress - Head Head exam: Present: normocephalic - Eye Eye exam: Present: EOMI Pupils: Absent: dilated - Respiratory Respiratory exam: Present: clear to auscultation bilaterally - Cardiovascular Cardiovascular exam: Present: regular rate and rhythm - GI/Abdominal GI/Abdominal exam: Present: normal bowel sounds, soft, other (Stool is brown and pasty). Absent: distended, guarding, tenderness, rebound - Extremities Exam Extremities exam: Absent: edema - Neurological Exam Neurological exam: Present: alert, oriented X3. Absent: altered - Psychiatric Psychiatric exam: Present: normal affect, normal mood Results - Labs CBC & BMP: 02/05/17 08:30 02/04/17 04:16
--- NOTE | 2017-02-05 12:11 | CT Report ---
CT chest wo con Indication: Left lung base nodule on chest x-ray. CT CHEST WITHOUT CONTRAST DLP: 239 mGy*cm. One or more of the following dose reduction techniques was used: Automated exposure control, adjustment of the mA and/or kV according the patient size, or use of iterative reconstruction techniques. Comparison: None Technique: Axial noncontrast CT images of the chest were obtained. Findings: Borderline cardiomegaly. Elongation of thoracic aorta with mild atheromatous disease. No mediastinal or axillary lymphadenopathy. No bulky hilar lymphadenopathy. Main pulmonary artery is normal in size. Dependent atelectasis of the lungs noted. 9 mm pleural-based pulmonary nodule left lower lobe is present. No other nodules are shown. Pulmonary vascular congestion noted dependently. There is atelectasis. Lungs are hypoinflated. Inflammation involves the head of the pancreas. Diverticulosis of the colon is present extensively. Upper abdomen appears otherwise unremarkable. Impression: 1. 9 mm left lower lobe soft tissue pulmonary nodule. 2. Elongation thoracic aorta with atheromatous disease. Mild pulmonary vascular congestion, suspicious for mild fluid overload. 3. Nonspecific inflammation near the head of the pancreas. Differential is pancreatitis, duodenitis or other inflammatory change. 4. Diverticulosis of the colon. PROCEDURE INTERPRETED AT [facility] DEPARTMENT OF RADIOLOGY Final Report Signed by: Xavier Jernigan M.D.
--- NOTE | 2017-02-05 14:34 | Hospitalist Progress Note ---
Assessment and Plan (1) Pulmonary nodule Status: Acute Assessment and plan: Obtain CT of the chest today. Tending of the chest x-ray discussed with the patient and the patient's youngest son who came into the room. Current Visit: Yes (2) GI bleed Status: Acute Assessment and plan: Stable hematocrit. Potentially will be discharged home pending report of the CT scan. Most likely will be tomorrow morning Current Visit: No Hospitalist: Subjective Interval history: Patient is seen interviewed and examined and chart has been reviewed. Main concern about her hematocrit which is stable however this lady has a nodule in the lung on the left base that needs to be further evaluated. Ordering a CT scan of the chest without contrast to assess this. My recommendation pending the radiologist's report. Plan also discussed with the patient's youngest adult son who came into the room. Exam - Constitutional Vitals: Period Temp Pulse Resp BP Sys/Mukherjee Pulse Ox Last 24 Hr 97.4 F-99.3 F 48-68 18-20 110-140/57-81 94-98 General appearance: normal weight - Head Head exam: Present: normal inspection, normocephalic - Eye Eye exam: Present: EOMI Pupils: Present: KIANA - Respiratory Respiratory exam: Present: clear to auscultation bilaterally - Cardiovascular Cardiovascular exam: Present: regular rate and rhythm - GI/Abdominal GI/Abdominal exam: Present: normal bowel sounds, soft - Extremities Exam Extremities exam: Present: full ROM - Neurological Exam Neurological exam: Present: alert, oriented X3 Results - Labs CBC & BMP: 02/05/17 08:30 02/04/17 04:16 Lab Results: I have reviewed the past 24 hour labs
[2017-02-06] MEDS ORDERED: SODIUM CHLORIDE 0.9% 250 ML IV PRN (07:08)
[2017-02-06] MEDS ORDERED: FUROSEMIDE 20 MG/2 ML VIAL IV PRN (07:08)
--- NOTE | 2017-02-06 07:12 | Gastrointestinal Progress Note ---
Assessment and Plan (1) Diverticular hemorrhage Status: Acute Assessment and plan: This patient's hematocrit is down to 25% but is been stable since yesterday at this level. Stools do not appear to have any further beth blood, I would not be surprised if there was some trace blood left over from her previous bleeding and perhaps from the tubular adenomas that were removed during colonoscopy as well. She will need a repeat colonoscopy with Dr. Branch in 5 years. 02/06/17--The patient is not having any further bleeding but she feels weak with her hematocrit stable at 25%. She is asked to undergo transfusion today prior to going home potentially. I feel this is reasonable, since she states that she really would not like to have to come back into the hospital after being discharged. Current Visit: No (2) Colon polyps Status: Acute Assessment and plan: This patient will need a repeat colonoscopy with Dr. Branch in January 2022. 02/06/17--as noted above, repeat colonoscopy with Dr. Branch in January 2022. Current Visit: Yes Gastroenterology - PN: Subj Interval history: The patient slept well with her half milligram of Xanax given for her underlying anxiety. She is concerned that she still feels weak and dizzy with her hematocrit being stable at 25%. She states that she would like to have blood transfusion before she goes home but is still her anticipation that she will be discharged today. No further blood in her stool. Exam (Progress Note) - Constitutional Vitals: Period Temp Pulse Resp BP Sys/Mukherjee Pulse Ox Last 24 Hr 97.1 F-98.4 F 48-71 14-18 120-147/69-85 96-98 General appearance: mild distress - Head Head exam: Present: normocephalic, atraumatic - Eye Eye exam: Present: EOMI Pupils: Present: KIANA - Respiratory Respiratory exam: Present: clear to auscultation bilaterally - GI/Abdominal GI/Abdominal exam: Present: normal bowel sounds, soft. Absent: distended, tenderness, rebound - Extremities Exam Extremities exam: Present: normal inspection - Neurological Exam Neurological exam: Present: alert, oriented X3, CN II-XII intact. Absent: motor sensory deficit - Psychiatric Psychiatric exam: Present: anxious - Skin Skin exam: Present: warm Results - Labs CBC & BMP: 02/05/17 08:30 02/04/17 04:16
[2017-02-06] MEDS: PANTOPRAZOLE 40 MG TABLET PO SCH (09:22)
[2017-02-06] MEDS: METOPROLOL SUCCINATE XL 25 MG TABLET PO SCH (09:22)
--- NOTE | 2017-02-06 11:15 | Pulmonology Consult Note ---
Assessment and Plan (1) Acute blood loss anemia Status: Resolved Assessment and plan: Because of this appears to be diverticulosis versus polyps. Defer to primary service and GI. Current Visit: No (2) Colon polyps Status: Acute Assessment and plan: Had 2 polyps removed that are both benign on pathology report. Current Visit: Yes (3) Pulmonary nodule Status: Acute Assessment and plan: 9 mm subpleural nodule left lower lobe and a non-smoker. I cannot be sure whether that was there on previous films as it is very difficult to sleep in that area on plain film. She needs a follow-up CT in 3 months. This is too small to safely biopsy at this point in time. It is close enough to 1 cm in size that a PET scan may be helpful. Will order that outpatient. Patient also having some shortness of breath. Will order PFTs in the morning. I will plan follow-up in the office after the PET scan is done and three-month CT. Current Visit: Yes History of Present Illness Chief complaint: Pulmonary nodule History of present illness: Ms. Corona is a 76 year old female who came in with lower GI bleeding. She has had a colonoscopy with removal of 2 adenomatous. Chest x-ray showed a small nodule in the left lower lobe which was confirmed on CT. It is a 9 mm subpleural nodule in the left base. It is very difficult to see on the plain chest x-ray and I cannot be certain whether it was there on her previous films. She is not aware of a pulmonary nodule in the past. She is a non-smoker. She did have secondhand exposure to smoke to her for a number of years. She complains of being a little short of breath on exertion. She has not had a cough congestion or hemoptysis. No pleuritic pain. Home Medications Medication Instructions Recorded Confirmed Type Metoprolol Succinate Xl [Toprol Xl] 25 mg PO DAILY 08/12/15 01/31/17 History Pantoprazole Tab [Protonix Tab] 40 mg PO DAILY 08/12/15 01/31/17 History hydroCHLOROthiazide 25 mg PO DAILY 08/12/15 01/31/17 History [Hydrochlorothiazide] Allergies Allergy/AdvReac Type Severity Reaction Status Date / Time No Known Allergies Allergy Unverified 08/12/15 12:20 12 point system: reviewed and no additional remarkable complaints except as stated - Cardiovascular Cardiovascular: Present: dyspnea on exertion - Respiratory Respiratory: Present: dyspnea on exertion - Gastrointestinal Gastrointestinal: Present: hematochezia Exam (Pulmonay) H&P - Constitutional Vitals: Period Temp Pulse Resp BP Sys/Mukherjee Pulse Ox Last 24 Hr 97.1 F-98.6 F 53-71 14-18 112-147/69-87 96-98 Exam: Vital signs normal. Pupils react to light. Throat is clear. Neck supple no bruits. Chest sounds clear equal breath sounds. Heart normal rate and rhythm no murmurs. Abdomen soft nontender no masses. Extremities no clubbing cyanosis or edema. Calves nontender Medical,Surgical,& Family Hx - Medical History Cardio: History of: Hypertension Psychological: No history of: Anxiety Disorders, ADHD, Behavior Problems, Bipolar Disorder, Depression, Previous Suicide Attempt, Psychiatric/Substance Abuse Tx, Schizophrenia, Violent Behavior, Psychiatric Problems Neurology: No history of: Seizures Gastrointestinal: History of: GERD, GI Problems (STOMACH ULCER) - Surgical History Reproductive Surgeries: Surgical HX of;: Hysterectomy - Family History Family History: Reports;: Family Heart Disease - Social History Smoking Status: Never smoker Type of Drug Use: None Results - Labs CBC & BMP: 02/05/17 08:30 02/04/17 04:16 Lab Results: I have reviewed the past 24 hour labs - Diagnostic Findings Procedure: Chest x-ray: image reviewed by me (Tiny nodule left base), CT - chest : image reviewed by me (9 mm nodule subpleural left lower lobe noncalcified.)
--- NOTE | 2017-02-06 12:09 | Hospitalist Progress Note ---
Assessment and Plan (1) Pulmonary nodule Status: Acute Assessment and plan: Obtained CT of the chest yesterday. That reveals a pleural-based lesion. Consultation with pulmonology is done. Function a CT of the chest could not be done. I am informed the poor function tests also been ordered for tomorrow. I greatly appreciate Dr. Tan attention to the patient. Current Visit: Yes (2) GI bleed Status: Acute Assessment and plan: I am informed patient is going to be transfused again today on recommendation of gastroenterology. PT H&H in the morning. Current Visit: No Hospitalist: Subjective Interval history: Patient has been seen interviewed and examined and chart has been reviewed. Patient reports being weak and described these to the ophthalmology surgical technician on the case and decision was made to transfuse her 2 units. Her hemoglobin the day before yesterday was 8. It did remained the same yesterday morning. Patient also was found to have a pleural-based lesion on chest x-ray and the CT scan was ordered yesterday that revealed a 9 mm soft tissue tumor that is pleural-based. Consultation with pulmonology is made. Is going to have a functional CT of the line to evaluate for malignancy more than likely the CT scan without contrast of the chest without to be repeated 3 months later. She will follow-up with Dr. Tan as an outpatient; in the meantime these procedures needs to be done while she is here. Exam - Constitutional Vitals: Period Temp Pulse Resp BP Sys/Mukherjee Pulse Ox Last 24 Hr 97.1 F-98.8 F 47-71 14-18 112-147/64-87 96-98 General appearance: no acute distress - Head Head exam: Present: normocephalic, atraumatic - Eye Eye exam: Present: EOMI Pupils: Present: KIANA - Respiratory Respiratory exam: Present: clear to auscultation bilaterally - Cardiovascular Cardiovascular exam: Present: regular rate and rhythm - GI/Abdominal GI/Abdominal exam: Present: normal bowel sounds, soft - Extremities Exam Extremities exam: Present: full ROM - Neurological Exam Neurological exam: Present: alert, oriented X3, CN II-XII intact - Psychiatric Psychiatric exam: Present: normal affect, normal mood - Skin Skin exam: Present: normal color, warm, dry Results - Labs CBC & BMP: 02/05/17 08:30 02/04/17 04:16 Lab Results: I have reviewed the past 24 hour labs
[2017-02-06] MEDS: FUROSEMIDE 20 MG/2 ML VIAL IV PRN ×2 (15:20→17:53)
[2017-02-06 20:00] LABS: Hematocrit 31.1 VOL% (35.7-47.0); Hemoglobin 10.1 GM/DL (12.0-16.0)
--- NOTE | 2017-02-07 08:35 | Pulmonology Progress Note ---
Pulmonary - PN: Subj Interval history: This 76-year-old lady came in with rectal bleeding. She has had 2 polyps removed. Apparently has diverticulosis. She was found to have a solitary pulmonary nodule at the left base which is 9 mm in diameter. It is subpleural. It needs following. Does not need a biopsy at this time. She will be set up for an outpatient PET scan. I will see her in the office in 3 months with a repeat chest CT. If the PET scan turns out positive then we will make arrangements for evaluation at an earlier date. Exam (Progress Note) - Constitutional Vitals: Period Temp Pulse Resp BP Sys/Mukherjee Pulse Ox Last 24 Hr 96.2 F-98.9 F 41-88 18-20 115-148/56-86 96-98 Exam: Patient is alert oriented vital signs normal. Pupils react to light. Throat is clear. Neck supple no bruits. Chest sounds clear. Heart normal rate and rhythm no murmurs. Abdomen soft nontender no masses. Extremities no clubbing cyanosis or edema. Calves nontender. Results - Labs CBC & BMP: 02/06/17 19:36 02/04/17 04:16 Lab Results: I have reviewed the past 24 hour labs Assessment and Plan (1) Acute blood loss anemia Status: Resolved Assessment and plan: Because of this appears to be diverticulosis versus polyps. Defer to primary service and GI. 02/07/17 patient still having some rectal bleeding. GI evaluating further. Current Visit: No (2) Colon polyps Status: Acute Assessment and plan: Had 2 polyps removed that are both benign on pathology report. Current Visit: Yes (3) Pulmonary nodule Status: Acute Assessment and plan: 9 mm subpleural nodule left lower lobe and a non-smoker. I cannot be sure whether that was there on previous films as it is very difficult to sleep in that area on plain film. She needs a follow-up CT in 3 months. This is too small to safely biopsy at this point in time. It is close enough to 1 cm in size that a PET scan may be helpful. Will order that outpatient. Patient also having some shortness of breath. Will order PFTs in the morning. I will plan follow-up in the office after the PET scan is done and three-month CT. 02/07/2017 plan is for outpatient PET scan which will probably be 1-3 weeks to get done. 3 month appointment with follow-up chest CT, if the PET scan is negative. If the PET scan is positive we will work her up sooner. I will sign off. Please call if needed further. Current Visit: Yes
--- NOTE | 2017-02-07 08:55 | Gastrointestinal Progress Note ---
Assessment and Plan (1) GI bleed Status: Acute Assessment and plan: 02/07-Hgb stable at 10.1 following transfusion yesterday. Continued bleeding this morning. Will order stat CT bleeding scan now. Plan and addendum to follow by Dr Branch. 02/04-no rectal this morning but states she did have a couple episodes yesterday. Hemoglobin is down at 8 today. No complaints of pain. Continue to monitor H&H and if patient continues with active bleeding may need to consider CT GI bleeding scan at that time. Plan an addendum to followed by Dr. Branch. 02/03-2 episodes of dark red blood with bowel movement since yesterday, significantly less than onset. Hemoglobin is improved to 9.3. No further transfusions have been required. Tolerating regular diet. Continue to monitor at this time and if remains stable could consider discharge tomorrow if bleeding resolves. Plan an addendum followed by Dr. Branch. 02/02-C scope findings noted with bleeding source to ascending colon, diverticulosis, and polyp with path pending. Reported one episode of bleeding this morning. Hemoglobin stable at 8.9. Recheck H&H this afternoon. Advance diet at this time. Plan an addendum to followed by Dr. Branch. 01/31-3 day history of bright red rectal bleeding with clots mixed with stool without associated symptoms. No abdominal pain. Prior history of diverticular bleeding in the past. Hemoglobin down to 7.9 and to be transfused today. Last C scope in 2010 with findings of pandiverticulosis. Continue to monitor serial H&H every 8 hours and transfuse as needed. Clear liquid diet. Plan an addendum to follow Dr. Branch. Current Visit: No Gastroenterology - PN: Subj Interval history: CC: GI bleed Pt is seen, awake and alert, lying in bed. She states she has had more blood in her stool and this was observed with bright red blood mixed in with solid stool. She is denying any abdominal pain, nausea or vomiting. She states that she is concerned at this point due to history of two family members who nearly "bled out" from rectal bleeding. Will order stat CT bleeding scan this morning. Hemoglobin is noted at 10.1 today and has had a total of 4 units of PRBC since admission. Abdomen is soft, nontender. ROS: Denies SOB or chest pain Exam (Progress Note) - Constitutional Vitals: Period Temp Pulse Resp BP Sys/Mukherjee Pulse Ox Last 24 Hr 96.2 F-98.9 F 41-88 18-20 115-148/56-86 96-98 General appearance: normal weight, no acute distress - Head Head exam: Present: normal inspection, normocephalic - Eye Eye exam: Present: other (lids and conjunctiva unremarkable). Absent: scleral icterus - ENT ENT exam: Present: normal exam, normal oropharynx - Neck Neck exam: Present: normal inspection - Respiratory Respiratory exam: Present: clear to auscultation bilaterally. Absent: rales, rhonchi, wheezes - Cardiovascular Cardiovascular exam: Present: regular rate and rhythm. Absent: diastolic murmur , JVD, systolic murmur - GI/Abdominal GI/Abdominal exam: Present: normal bowel sounds, soft. Absent: ascites, distended, mass, organomegaly, tenderness - Extremities Exam Extremities exam: Present: normal inspection, full ROM - Back Exam Back exam: Present: normal inspection - Neurological Exam Neurological exam: Present: alert, oriented X3 - Psychiatric Psychiatric exam: Present: normal affect, normal mood - Skin Skin exam: Present: normal color, warm, dry Results - Labs CBC & BMP: 02/06/17 19:36 02/04/17 04:16 Lab Results: I have reviewed the past 24 hour labs
[2017-02-07] MEDS: PANTOPRAZOLE 40 MG TABLET PO SCH (09:42)
[2017-02-07] MEDS: METOPROLOL SUCCINATE XL 25 MG TABLET PO SCH (09:43)
--- NOTE | 2017-02-07 09:55 | CT Report ---
CT angio abd/pel GI Bleed TECHNIQUE: Axial CT images of the Abdomen and Pelvis were obtained during the arterial phase of contrast injection. 3-D vascular MIPS reconstructions and multiplanar reformats were evaluated. Omnipaque 350, 100 cc was administered intravenously with no immediate complication. Dose reduction: This CT exam was performed using one or more of the following dose reduction techniques: Automated exposure control, automated adjustment of the mA and/or KV according to patient size, or use of iterative reconstruction technique. COMPARISON: None available CLINICAL HISTORY: Lower GI bleed, passing blood per rectum CTA FINDINGS: Visualized using thoracic aorta is nonaneurysmal with minimal atherosclerotic disease. The celiac and superior mesenteric arteries are patent. There are single bilateral renal arteries with no significant luminal stenosis or atherosclerotic plaque. Inferior mesenteric artery is also widely patent. No areas of active contrast extravasation are identified on the arterial phase images. On the delayed images, there is no suggestion of definite contrast blush to suggest focus of active hemorrhage at this time. The aortic bifurcation, iliac/pelvic vasculature is widely patent with minimal atherosclerotic plaque. NON--CTA FINDINGS: Posterior basilar atelectatic changes are noted. There are also small bilateral pleural effusions. There is no significant pericardial effusion. Lung bases are otherwise clear. ABDOMEN: Liver/Gallbladder: 3 separate lesions with peripheral nodular discontinuous enhancement within the right hepatic lobe and central fill-in on delayed images are compatible with hemangiomas. No abnormal enhancing lesions are otherwise identified. There are no gallstones visualized. There is mild prominence of the common bile duct measuring up to 9 mm but no filling defects are visualized. Portal vein is patent. Spleen: No acute findings. Pancreas: No acute findings. Adrenals: 1 cm left adrenal nodule measures cystic/water density on the precontrast images and is therefore felt to represent an adenoma. Right adrenal gland appears unremarkable. Kidneys: No kidney stones are visualized. There is no hydronephrosis. There is expected enhancement of kidneys and excretion of contrast on delayed images Bowel/mesentery: Bowel is nondilated. There is no free fluid/air within the abdomen. Small duodenal diverticulum is suspected near the ampulla. Extensive colonic diverticulosis is noted. There is no CT evidence of acute diverticulitis. Moderate stool is also noted throughout colon which is otherwise nondilated. The appendix is not definitely identified. There are no secondary signs of acute appendicitis. Retroperitoneum: No retroperitoneal adenopathy. PELVIS: No free fluid in the dependent pelvis. The bladder is mildly distended but otherwise grossly unremarkable. Post hysterectomy surgical changes are noted. There are no adnexal masses. There is no adenopathy in the pelvis. BONES: No acute or suspicious osseous abnormalities are identified. S-shaped scoliotic deformity of the thoracolumbar spine is noted with multilevel mild degenerative changes throughout the mid lumbar levels including facet arthropathy and disc space loss. IMPRESSION: 1. No evidence of active extravasation of contrast at the time of the study. 2. Posterior basilar atelectasis and small bilateral pleural effusions. 3. Extensive diverticulosis with no CT evidence of acute diverticulitis. 02/07/2017 9:39 AM PROCEDURE INTERPRETED AT [facility] DEPARTMENT OF RADIOLOGY Final Report Signed by: Jn Sinclair
[2017-02-07 10:05] LABS: Hematocrit 33.4 VOL% (35.7-47.0); Hemoglobin 10.8 GM/DL (12.0-16.0)
--- NOTE | 2017-02-07 12:27 | Hospitalist Progress Note ---
Assessment and Plan (1) Pulmonary nodule Status: Acute Assessment and plan: Obtained CT of the chest yesterday. That reveals a pleural-based lesion. Consultation with pulmonology is done. Function a CT of the chest could not be done. I am informed the poor function tests also been ordered for tomorrow. I greatly appreciate Dr. Tan attention to the patient. Current Visit: Yes (2) GI bleed Status: Acute Assessment and plan: Patient had another event of hematochezia this morning as mentioned above. Bleeding scan is in process of being done Current Visit: No Hospitalist: Subjective Interval history: Patient has been seen interviewed and examined and chart has been reviewed. This patient was slated for discharge today however she started bleeding again. GI has seen the patient the plan is to do a bleeding scan at this point and figure whether this hematochezia is coming from. My suspicion is that she is a diverticular bleeding in the sense that patient's hematocrit has very no change having had a transfusion yesterday. Will follow the outcome of the bleeding scan. Clinically patient has normal vital signs. Repeat hematocrit is going to be done prior to the bleeding scan. Expectation that is related to change Exam - Constitutional Vitals: Period Temp Pulse Resp BP Sys/Mukherjee Pulse Ox Last 24 Hr 96.2 F-98.9 F 41-88 18-20 115-148/56-86 96-98 General appearance: normal weight - Head Head exam: Present: normal inspection - Eye Eye exam: Present: EOMI Pupils: Present: KIANA - ENT ENT exam: Present: normal exam - Neck Neck exam: Present: normal inspection - Respiratory Respiratory exam: Present: clear to auscultation bilaterally - Cardiovascular Cardiovascular exam: Present: regular rate and rhythm - GI/Abdominal GI/Abdominal exam: Present: normal bowel sounds, soft, other (Nontender abdomen on palpation) - Extremities Exam Extremities exam: Present: full ROM - Neurological Exam Neurological exam: Present: alert, oriented X3, CN II-XII intact - Psychiatric Psychiatric exam: Present: normal affect, normal mood - Skin Skin exam: Present: normal color, warm, dry Results - Labs CBC & BMP: 02/07/17 09:52 02/04/17 04:16 Lab Results: I have reviewed the past 24 hour labs
--- NOTE | 2017-02-08 09:01 | Gastrointestinal Progress Note ---
Assessment and Plan (1) GI bleed Status: Acute Assessment and plan: 02/08-no overt bleeding reported this morning. H&H is pending at present time. Continue to monitor today. Plan an addendum to follow Dr. Branch. 02/07-Hgb stable at 10.1 following transfusion yesterday. Continued bleeding this morning. Will order stat CT bleeding scan now. Plan and addendum to follow by Dr Branch. 02/04-no rectal this morning but states she did have a couple episodes yesterday. Hemoglobin is down at 8 today. No complaints of pain. Continue to monitor H&H and if patient continues with active bleeding may need to consider CT GI bleeding scan at that time. Plan an addendum to followed by Dr. Branch. 02/03-2 episodes of dark red blood with bowel movement since yesterday, significantly less than onset. Hemoglobin is improved to 9.3. No further transfusions have been required. Tolerating regular diet. Continue to monitor at this time and if remains stable could consider discharge tomorrow if bleeding resolves. Plan an addendum followed by Dr. Branch. 02/02-C scope findings noted with bleeding source to ascending colon, diverticulosis, and polyp with path pending. Reported one episode of bleeding this morning. Hemoglobin stable at 8.9. Recheck H&H this afternoon. Advance diet at this time. Plan an addendum to followed by Dr. Branch. 01/31-3 day history of bright red rectal bleeding with clots mixed with stool without associated symptoms. No abdominal pain. Prior history of diverticular bleeding in the past. Hemoglobin down to 7.9 and to be transfused today. Last C scope in 2010 with findings of pandiverticulosis. Continue to monitor serial H&H every 8 hours and transfuse as needed. Clear liquid diet. Plan an addendum to follow Dr. Branch. Current Visit: No Gastroenterology - PN: Subj Interval history: CC: GI bleed Patient is seen awake and alert sitting up on side of bed eating breakfast. She states she has not had a bowel movement since yesterday morning and no overt bleeding at this present time. She was changed back to clear liquid diet in preparation for possible colonoscopy if bleeding does not resolve. Abdomen is soft, nontender. CT bleeding scan on yesterday noted to be negative. Repeat H&H is pending for this morning. ROS: Denies shortness of breath or chest pain Exam (Progress Note) - Constitutional Vitals: Period Temp Pulse Resp BP Sys/Mukherjee Pulse Ox Last 24 Hr 97.4 F-98.2 F 49-81 18-20 135-141/63-91 95-97 - Other Additional findings: General appearance: normal weight, no acute distress - Head Head exam: Present: normal inspection, normocephalic - Eye Eye exam: Present: other (lids and conjunctiva unremarkable). Absent: scleral icterus - ENT ENT exam: Present: normal exam, normal oropharynx - Neck Neck exam: Present: normal inspection - Respiratory Respiratory exam: Present: clear to auscultation bilaterally. Absent: rales, rhonchi, wheezes - Cardiovascular Cardiovascular exam: Present: regular rate and rhythm. Absent: diastolic murmur , JVD, systolic murmur - GI/Abdominal GI/Abdominal exam: Present: normal bowel sounds, soft. Absent: ascites, distended, mass, organomegaly, tenderness - Extremities Exam Extremities exam: Present: normal inspection, full ROM - Back Exam Back exam: Present: normal inspection - Neurological Exam Neurological exam: Present: alert, oriented X3 - Psychiatric Psychiatric exam: Present: normal affect, normal mood - Skin Skin exam: Present: normal color, warm, dry Results - Labs CBC & BMP: 02/07/17 09:52 02/04/17 04:16 Lab Results: I have reviewed the past 24 hour labs
[2017-02-08 09:05] LABS: Basophils % 0.6 % (0.0-0.8); Eosinophils # 0.2 10*3/uL (0.0-0.87); Hematocrit 31.6 VOL% (35.7-47.0); Hemoglobin 10.3 GM/DL (12.0-16.0); Immature Granulocytes % 0.4 %; Immature Granulocytes Absolute 0.02 #; Lymphocytes # 1.2 10*3/uL (1.4-4.0); Lymphocytes % 23.3 % (21.3-54.2); Mean Corpuscular HGB Conc 32.6 GM/DL (32-36); Mean Corpuscular Hemoglobin 27 PG (27-34); Mean Corpuscular Volume 83.2 FL (87-102); Mean Platelet Volume 10.7 FL (9.6-12.0); Monocytes # 0.6 10*3/uL (0.11-0.8); Monocytes % 11.8 % (1.7-12.7); Neutrophils # 3.2 10*3/uL (1.4-7.4); Neutrophils % 59.9 % (38.7-73.9); Platelet Count 142 T/CUMM (130-400); Red Cell Distribution Width 14.9 % (9.3-17.3); White Blood Count 5.3 T/CUMM (4-12)
[2017-02-08 09:33] LABS: Calcium 9.1 MG/DL (8.5-10.1); Osmolality,Calculated 283.8 MOS/KG (273-304); Potassium 3.8 MMOL/L (3.5-5.1)
[2017-02-08] MEDS: PANTOPRAZOLE 40 MG TABLET PO SCH (10:39)
[2017-02-08] MEDS: METOPROLOL SUCCINATE XL 25 MG TABLET PO SCH (10:39)
--- NOTE | 2017-02-08 10:52 | EKG Report ---
Stationary ECG Study [facility] Test Date: 02/08/2017 10:52:47 AM Pat Name: CHEL WEINBERG Department: Room: 531 Gender: F Presser Automatic: : [phone] Requested by: Prasanna Novak Order Number: [id number] Reading MD: LYNNE ALBRECHT Intervals [place] Rate: 48 P: 46 IA: 228 QRS: 60 QRSD: 87 T: 52 QT: 464 QTc: 429 Interpretive Statements SINUS BRADYCARDIA WITH PROLONGED IA INTERVAL WITH OCCASIONAL SUPRAVENTRICULAR PREMATURE COMPLEXES Electronically Signed On 02-11-17 15:37:16 CDT by LYNNE ALBRECHT [email or web address]
[2017-02-08 11:43] VITALS: BP 155/88
--- NOTE | 2017-02-08 11:43 | Discharge Summary ---
Hospital Course - Hospital Course Hospital Course: 76 year old female who was admitted to the hospital with onset of bright red rectal bleeding. Patient is a fairly good historian however sign and spouse are at bedside. Patient states that she was doing well until Tuesday when she had a sudden onset of bright red rectal bleeding. She states that the bleeding concern her and she went to see Dr. Rodriguez at that time and was given antibiotics to treat for possible diverticulitis. She was also told at that time the rectal bleeding was possibly related to her hemorrhoids. She states that the bleeding continued over the weekend with a couple of bowel movements daily mixed with bright red blood and dark clots without abdominal pain other than the urge to defecate. She states that on yesterday she began to be increasingly weak and decided to come to the emergency room today for further evaluation due to this. Patient has a prior history of diverticular bleeding in the past. She states that this feels very similar to the past experience that she has had. She has had some weight loss over the last year at 25 pounds which was verified from her last inpatient stay in July 2015. 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 She does report a loss of appetite over the last year or 2. Her last inpatient stay was in July 2015 for rectal bleeding. Last known colonoscopy was in 2010 with findings of pandiverticulosis coli and small internal hemorrhoids. On admission patient was found to have a hemoglobin of 7.9. , pt was transfused 2 unit of RBC , Hct got stable , during hospital stay pt has some mild rectal bleed, RBC scan done came normal pt was consulted by GI agree with our management, HCT remain stable no further lower GI bleeding, , pt is now ready for discharge today advice to take iron tablet , and f\u and f\u with GI clinic in 4 weeks Diagnosis - Discharge Diagnosis (1) Diverticular hemorrhage Status: Acute (2) Colon polyps Status: Chronic (3) Anemia Status: Chronic Specialty Discharge - Follow Up or Referrals Follow up with: Bill Tan MD [Physician] - 05/10/17 1:15 pm (PET SCAN SETUP FOR MAR 07@10:15 at [facility] NON CONTRAST CHEST CT @ 11:30 ON 05/10 at [facility] AND FOLLOW/UP APPT AFTERWARD WITH DR TAN @1:15) Discharge Plan - Discharge Data Condition at Discharge: Stable Discharge Diet: low fat, low cholesterol Activity: resume usual activities as tolerated - Discharge Medications New Metoprolol Succinate 12.5 mg PO DAILY #90 tab.er.24h Ferrous Sulfate 325 mg PO BID #60 tablet Continue Pantoprazole Tab [Protonix Tab] 40 mg PO DAILY hydroCHLOROthiazide [Hydrochlorothiazide] 25 mg PO DAILY Discontinued Metoprolol Succinate Xl [Toprol Xl] 25 mg PO DAILY - Follow Up or Referral Follow Up: Bill Tan MD [Physician] - 05/10/17 1:15 pm (PET SCAN SETUP FOR MAR 07@10:15 at [facility] NON CONTRAST CHEST CT @ 11:30 ON 05/10 at [facility] AND FOLLOW/UP APPT AFTERWARD WITH DR TAN @1:15) - Forms/Instructions Instructions: Diverticulitis (DC), Diverticulitis Diet (DC), Pulmonary Nodules (DC) Exam - Constitutional Vitals: Period Temp Pulse Resp BP Sys/Mukherjee Pulse Ox Last 24 Hr 97.4 F-98.2 F 42-81 18-20 136-144/63-91 95-97 heent, pearle neck, supple. chest clear. cvs, s1 s2. abd, soft, bs+ sugar controller, alert orientedx3 afocal Discharge Results Labs on day of discharge: Labs from last 24 hours 02/08/17 02/08/17 08:56 08:56 WBC 5.3 RBC 3.80 D Hgb 10.3 L Hct 31.6 L MCV 83.2 L MCH 27 MCHC 32.6 RDW 14.9 Plt Count 142 MPV 10.7 Neut % (Auto) 59.9 Lymph % (Auto) 23.3 [place] % (Auto) 11.8 Eos % (Auto) 4.0 Baso % (Auto) 0.6 Neut # (Auto) 3.2 Lymph # (Auto) 1.2 L [place] # (Auto) 0.6 Eos # (Auto) 0.2 Baso # (Auto) 0.0 Immature Gran % 0.4 Nucleated RBC % 0.0 Immature Gran # 0.02 Nucleated RBCs # 0.00 Sodium 144 Potassium 3.8 Chloride 112 H Carbon Dioxide 27 Anion Gap 8.8 BUN 8 Creatinine 0.80 GFR Calculation 80 BUN/Creatinine Ratio 10.00 Glucose 91 Calculated Osmolality 283.8 Calcium 9.1 DS: Provider Date of admission: 01/31/17 13:30 Primary care physician: . No PCP Attending physician on admission: Sylvia Beth MD Consults: 01/31/17 13:36 Consult to Physician [CONS] Routine Comment: Diverticular bleed Consulting Provider: Rd [facility] When should Consulting Provider be notified: Now Consult to Specialist Group: Gastroenterology Person Notified: BASILIO OQUENDO Date Notified: 01/31/17 Time Notified: 15:57 01/31/17 15:43 Consult to Dietitian [CONS] Routine Reason for Dietitian: Other 02/06/17 08:13 Consult to Physician [CONS] Routine Comment: On-call physician/9 mm solitary pulmonary nodule Consulting Provider: Consult to Specialist Group: Pulmonology When should Consulting Provider be notified: Now Consult Notification Comment: DR. TAN [place] Discharging clinician: Prasanna Novak MD
== END 2017-02-08 12:50 | disposition home or self-care (01) | DRG 378 ==
LOC: N.ED 09:51 → SUATTDRO 13:30 → N.EDINP 13:30 → N.5E 15:08
PROVIDERS: ADMIT Family Medicine; ATTEND Emergency Medicine